=== PATIENT | male | born 1970 | race Hispanic/Latino ===

== ENCOUNTER → 2018-08-02 | Day surgery (SDC) | payer BC ==
[~2018-08-02] MED LIST: FENTANYL CITRATE/PF 100MCG/2 ML INJ ONE; METOPROLOL SUCC50 MG PO; MIDAZOLAM HCL 2 MG/2 ML VIAL ONE; PROPOFOL IV EMULSION 10 MG/ML 20 ML VIAL ONE; ZANTAC 7575 MG PO
[2018-08-02 07:00] VITALS: BP 133/92
--- NOTE | 2018-08-02 07:24 | Operative Report ---
DATE OF PROCEDURE: August 02, 2018 PREOPERATIVE DIAGNOSIS: Gastroesophageal reflux disease. POSTOPERATIVE DIAGNOSES: 1. Hiatal hernia. 2. Moderate distal esophagitis. 3. Gastroesophageal reflux disease. PREOPERATIVE INDICATION: Assess for mucosal disease, assess for hiatal hernia. PROCEDURE: Esophagogastroduodenoscopy with esophageal biopsy (CPT 88298). ANESTHESIA: Moderate sedation. FLUIDS: As per anesthesia. EBL: Minimal. DRAINS: None. COMPLICATIONS: None. SPECIMENS: Distal esophagus. FINDINGS: 1. Small hiatal hernia. 2. Distal esophagitis at the GE junction. GRAFTS: None. PROCEDURAL DETAIL: The patient was brought to the endoscopy suite and was sedated with IV propofol. A preprocedural pause was performed, identifying the patient and the intended procedure. An adult-size endoscope was introduced through the oropharynx and guided to the second portion of the duodenum. No duodenal abnormalities were noted. No gastric abnormalities were noted. Retroflexion was done. The distal esophagus small hiatal hernia was identified. There was also some moderate circumferential distal esophagitis at the GE junction. This was biopsied x2 with the cold forceps. Prior to removing endoscope, the stomach was desufflated. The endoscope was removed. The patient tolerated the procedure well. TYPE OF WOUND: Type 1, clean. Job#: [id number]
== END | disposition home or self-care (01) ==
LOC: OR 05:11
PROVIDERS: ATTEND Surgery
DX: K21.0 Gastro-esophageal reflux disease with esophagitis (principal); K44.9 Diaphragmatic hernia without obstruction or gangrene; I10 Essential (primary) hypertension; E66.01 Morbid (severe) obesity due to excess calories; Z68.41 Body mass index [BMI] 40.0-44.9, adult
CPT/HCPCS: 43239; 88305; J2250; J2704; 43235

== ENCOUNTER 2018-08-23 06:05 | Inpatient (IN) | payer BC ==
[2018-08-19 08:51] LABS: BASOPHILS # (AUTO) 0.1 (0.0-0.1); BASOPHILS % 0.9 % (0.0-1.0); EOSINOPHILS # (AUTO) 0.3 (0.0-0.4); EOSINOPHILS % 6.1 % (0.0-6.0); HEMATOCRIT 42.9 % (38.2-49.6); HEMOGLOBIN 15.1 g/dL (14.0-18.0); LYMPHOCYTES # (AUTO) 2.1 (1.0-3.2); LYMPHOCYTES % 39.2 % (18.0-39.1); MEAN CORPUSCULAR HEMOGLOBIN 31.9 pg (28-32); MEAN CORPUSCULAR HGB CONC 35.2 g/dL (31-35); MEAN CORPUSCULAR VOLUME 90.5 fL (81-99); MONOCYTES # (AUTO) 0.7 (0.2-0.8); MONOCYTES % 12.6 % (4.4-11.3); NEUTROPHILS # (AUTO) 2.2 (2.1-6.9); NEUTROPHILS % 40.8 % (38.7-80.0); PLATELET COUNT 239 x10e3/uL (140-360); RED BLOOD COUNT 4.74 x10e6/uL (4.3-5.7); RED CELL DISTRIBUTION WIDTH 12.5 % (11.7-14.4)
[~2018-08-23] VITALS: Ht 172.7 cm; Wt 123.8 kg
[~2018-08-23 06:05] MED LIST changes: -FENTANYL CITRATE/PF 100MCG/2 ML INJ ONE; -MIDAZOLAM HCL 2 MG/2 ML VIAL ONE; -PROPOFOL IV EMULSION 10 MG/ML 20 ML VIAL ONE
[2018-08-23] MEDS ORDERED: BUPIVACAINE 0.25% 30ML SDV INJ ONE (06:51)
[2018-08-23] MEDS ORDERED: CEFAZOLIN SOD 2 GM/D5W 50ML 50 ML IV ONE (07:02)
[2018-08-23] MEDS ORDERED: SCOPOLAMINE 1.5 MG PATCH ONE (07:12)
[2018-08-23] MEDS ORDERED: SUGAMMADEX SODIUM 200 MG/2 ML VIAL IV ONE (08:39)
[2018-08-23] MEDS ORDERED: FENTANYL CITRATE/PF 100MCG/2 ML INJ ONE ×2 (09:14→17:25)
[2018-08-23] MEDS ORDERED: ONDANSETRON HCL INJ 2MG/ML 2ML 2 MG/ML VIAL ONE ×2 (09:55→17:41)
[2018-08-23] MEDS ORDERED: METOCLOPRAMIDE HCL 10 MG/2ML VIAL ONE (09:55)
[2018-08-23] MEDS ORDERED: MORPHINE SULFATE 2 MG/ML SYR 1ML IV PRN (10:00)
[2018-08-23] MEDS ORDERED: MORPHINE SULFATE INJ 4 MG/ML INJ 1ML ONE (10:07)
--- NOTE | 2018-08-23 10:25 | Operative Report ---
DATE OF PROCEDURE: August 23, 2018 PREOPERATIVE DIAGNOSIS: Hiatal hernia. POSTOPERATIVE DIAGNOSIS: Hiatal hernia. PREOPERATIVE INDICATIONS: Treat and try to prevent complications related to hiatal hernia. PROCEDURE: Laparoscopic hiatal hernia repair (CPT 09421). ANESTHESIA: General. CONVERTER SKIMMER: Caleb Ferguson surgical specialist (needed due to complexity). FLUIDS: 800 mL crystalloid. EBL: 20 mL. DRAINS: None. COMPLICATIONS: None. SPECIMENS: None. GRAFTS: None. FINDINGS: Hiatal hernia present with thickened hernia sac. PROCEDURE IN DETAIL: The patient was brought to the operating room and was intubated under general endotracheal anesthesia. He was sterilely prepped and draped in the usual fashion. A preprocedure pause was performed identifying the patient and the use of perioperative antibiotics, intended procedure, and staff surgeon. A primary 5 mm left subcostal incision was made and a Veress needle was inserted and insufflated the abdomen to a pressure of 15 mmHg. A 0-degree, 5-mm Optiview trocar was placed under direct visualization. No injuries were noted. Four additional trocars were placed in the standard position. A liver retractor was used to expose the hiatus. I began the dissection by incising the gastrohepatic ligament near the pas flaccida, and was able to then mobilize and the reduce the hiatal hernia by dissecting off the hernia sac from the right crux, as well as the left crux of the diaphragm. This dissection continued anteriorly to the arch of the crux. There was a thickened hernia sac, which was carefully reduced. I was able to gain about 2-3 cm of intra-abdominal esophageal length. Once that was completed, I repaired the hiatus with 2-0 Surgidac suture in an interrupted fashion. We verified hemostasis. I then desufflated the abdomen and removed the trocars. Closed the incision sites with 4-0 Monocryl suture in a subcuticular fashion. Quarter percent bupivacaine was used at both the preperitoneal and the incision site. The patient tolerated the procedure well. Type of wound is type 1, clean. Job#: [id number] RI INEZ
--- NOTE | 2018-08-23 10:40 | NUR ---
Received patient via stretcher from PACU. AAOX4 to time, person, place, situation. Respirations even and unlabored. On room air SPO2 96%. Oriented patient to room. Instructed to use call light for assistance. Voiced understanding. Will continue to monitor.
[2018-08-23 10:44] VITALS: BP 131/76
[2018-08-23 10:46] VITALS: BP 131/76
[2018-08-23 10:51] VITALS: BP 131/76
--- NOTE | 2018-08-23 10:57 | History and Physical ---
CHIEF COMPLAINT: "I underwent bariatric surgery today." HISTORY OF PRESENT ILLNESS: This is a 48-year-old man who today underwent successful laparoscopic sleeve gastrectomy and hiatal hernia repair. The patient has a history of extreme obesity with a body mass index of 41, as well as hypertension. The patient states his pain is well controlled. The patient states his primary care physician is Dr. Holguin. REVIEW OF SYSTEMS GENERAL: Weight has been stable. HEENT: No headaches. No vision changes. CARDIOVASCULAR/RESPIRATORY: No chest pain. No shortness of breath or cough. GI: No nausea, vomiting, diarrhea, or constipation. : No Chan catheter in place. NEUROMUSCULAR: No limb weakness or numbness. PAST MEDICAL HISTORY 1. Extreme obesity complicating hypertension. 2. Hypertensive heart disease. 3. GERD. FAMILY HISTORY: Both parents are and both parents had hypertension. Mother had type 2 diabetes mellitus. HOME MEDICATIONS 1. Metoprolol succinate 50 mg daily. 2. Ranitidine 75 mg b.i.d. ALLERGIES: NO KNOWN DRUG ALLERGIES. SURGICAL HISTORY 1. Left arm surgery to repair fracture in 1985. 2. Tonsillectomy. 3. Laparoscopic sleeve gastrectomy and hiatal hernia repair today. 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 No history of tobacco use. He does drink alcohol socially. PHYSICAL EXAMINATION GENERAL: He is somnolent, but arousable. He is currently in the postanesthesia care unit. VITALS: Blood pressure is 140/80, pulse is 56, respiratory rate 18, oxygen saturation 98% on room air, temperature 97.9. Height is 5 feet 8 inches, weight 270 pounds. BMI 41. INTEGUMENT: Skin is warm and dry. No pallor, conjunctivitis or diaphoresis. HEENT: Anicteric sclerae. Moist mucous membranes. NECK: Supple. CARDIOVASCULAR: Distant heart sounds. Bradycardic rate. Regular rhythm. LUNGS: No rales. No rhonchi or wheezes. ABDOMEN: Soft. The laparotomy incisions are covered with Steri-Strips. No bowel sounds are auscultated. EXTREMITIES: No edema or deformity. He is currently wearing sequential compression devices on his bilateral lower leg area. NEUROLOGIC: Intact. IMPRESSION 1. Status post laparoscopic sleeve gastrectomy with hiatal hernia repair. 2. Hypertensive heart disease. 3. Extreme obesity: Body mass index 41 complicating underlying hypertensive heart disease. 4. Gastroesophageal reflux disease. PLAN 1. Advance diet as per bariatric surgery. 2. Intravenous fluids. 3. Start enoxaparin. 4. Mobilize. 5. Encourage incentive spirometry usage to help prevent atelectasis. 6. I spent 40 minutes in the care of this patient. 7. Will follow hepatic transaminases, renal function, as well as hemoglobin and hematocrit. Job#: [id number] RI INEZ
[2018-08-23] MEDS ORDERED: MORPHINE SULFATE 2 MG/ML SYR 1ML IV STA (11:10)
[2018-08-23] MEDS ORDERED: MORPHINE SULFATE INJ 4 MG/ML INJ 1ML IV NR (11:30)
--- NOTE | 2018-08-23 12:26 | NUR ---
walking at this time. No s/s of acute distress noted
[2018-08-23 12:40] VITALS: BP 110/67
--- NOTE | 2018-08-23 12:52 | Operative Report ---
DATE OF PROCEDURE: August 23, 2018 PREOPERATIVE DIAGNOSES 1. Morbid obesity, body mass index of 42. 2. Hypertension. POSTOPERATIVE DIAGNOSES 1. Morbid obesity, body mass index of 42. 2. Hypertension. PREOPERATIVE INDICATIONS: Treat disease, prevent complications related to comorbid conditions of obesity. PROCEDURE PERFORMED: Laparoscopic vertical sleeve gastrectomy. ANESTHESIA: General. FOAM CHARGER: Caleb Ferguson Surgical Retoucher Photoengraving (needed due to complexity of case.) FLUIDS: 800 mL crystalloid. ESTIMATED BLOOD LOSS: 25 mL. DRAINS: None. COMPLICATIONS: None. SPECIMENS: Partial stomach. GRAFTS: None. FINDINGS 1. Hiatal hernia. 2. Negative intraoperative EGD leak test. PROCEDURAL DETAILS: The patient was brought to the operating room and was intubated under general endotracheal anesthesia. Access was gained through a left subcostal incision and a Veress needle. Four additional trocars were placed, and a liver retractor was used to expose the stomach and hiatus. The greater curvature of the stomach was mobilized using the [place] LigaSure device from 4 cm proximal to the pyloric valve to the left emily of the diaphragm. An adult-size endoscope was inserted and used as a bougie along the lesser curvature of the stomach. The greater curvature of the stomach was resected using a 60-mm endo BYRON purple load Covidien stapling device with reinforced seam guard. Once the greater curvature of the stomach was resected, I then conducted intraoperative EGD leak test. No leaks were identified. The specimen was removed through the right periumbilical port site. The port site was closed with 0 Vicryl suture using the Zuhair-Tanya technique. We then verified hemostasis, removed the liver retractor and desufflated the abdomen. We closed all the incision sites with a 4-0 Monocryl suture in a subcuticular fashion, and Dermabond dressings were applied. The patient tolerated the procedure well. We used 0.25% bupivacaine in both the preperitoneal and incision sites. All surgical sponge and instrument counts were correct. Job#: [id number] MARIANA
[2018-08-23] MEDS: SODIUM CHLORIDE 0.9% 1000ML 1,000 ML IV SCH ×2 (14:00→22:05)
[2018-08-23] MEDS: MORPHINE SULFATE INJ 4 MG/ML INJ 1ML IV PRN ×2 (15:30→20:50)
[2018-08-23] MEDS ORDERED: MIDAZOLAM HCL 2 MG/2 ML VIAL ONE (17:25)
[2018-08-23 17:30] VITALS: BP 121/67
[2018-08-23] MEDS ORDERED: PHENYLEPHRINE HCL 1% 10 MG/ML VIAL ONE (17:40)
[2018-08-23] MEDS ORDERED: VASOPRESSIN INJ 20 UNIT/ML VIAL ONE (17:40)
[2018-08-23] MEDS ORDERED: DEXAMETHASONE SOD PHOS INJ 4 MG/ML VIAL ONE (17:41)
[2018-08-23] MEDS ORDERED: SEVOFLURANE INHAL SOLN 250 ML PEN BTL ONE (17:41)
[2018-08-23] MEDS ORDERED: EPHEDRINE SULFATE INJ 50 MG/10 ML SYR ONE (17:41)
[2018-08-23] MEDS ORDERED: GLYCOPYRROLATE INJ 1MG/ 5 ML SYR ONE (17:41)
[2018-08-23] MEDS ORDERED: NEOSTIGMINE 5 MG/5ML SYR ONE (17:41)
[2018-08-23] MEDS ORDERED: SUCCINYLCHOLINE 200 MG/10 ML SYR ONE (17:41)
[2018-08-23] MEDS ORDERED: PROPOFOL IV EMULSION 10 MG/ML 20 ML VIAL ONE (17:41)
[2018-08-23] MEDS ORDERED: ROCURONIUM BROMIDE 10 MG/ML 5ML VIAL ONE (17:41)
[2018-08-23] MEDS ORDERED: ACETAMINOPHEN 1000 MG/100 ML IV ONE (17:41)
[2018-08-23] MEDS ORDERED: LIDOCAINE HCL 2% LOCAL INJ 5 ML SDV VIAL INJ ONE (17:41)
[2018-08-23 20:00] VITALS: BP 127/67
--- NOTE | 2018-08-23 20:09 | NUR ---
PATIENT IS AMBULATING IN THE [place], NO RESPIRATORY DISTRESS OBSERVED. HE C/O PAIN TO THE ABDOMEN WITH PAIN SCORE #4, HE SAYS THAT HE WILL CALL WHEN HE'S READY FOR PAIN MEDICATION.
[2018-08-23] MEDS: ENOXAPARIN SOD INJ 40 MG/0.4 ML SYR SC SCH (20:48)
[2018-08-23] MEDS: ONDANSETRON HCL INJ 2MG/ML 2ML 2 MG/ML VIAL IV PRN (20:50)
[2018-08-23] MEDS ORDERED: ENOXAPARIN SOD INJ 40 MG/0.4 ML SYR SC SCH (21:00)
[2018-08-24] VITALS: BP 145/80
[2018-08-24] MEDS: MORPHINE SULFATE INJ 4 MG/ML INJ 1ML IV PRN ×3 (01:14→10:48)
--- NOTE | 2018-08-24 01:15 | NUR ---
PATIENT C/O PAIN TO THE ABDOMEN WITH PAIN SCORE #7, MEDICATED WITH MORPHINE ORDERED. PATIENT WANTED TO AMBULATE AFTER THE MEDICATION ADMINISTRATION, HE WAS EDUCATION THAT IT WILL NOT BE SAFE DUE TO SIDE EFFECT FROM THE MEDICATION. CALL LIGHT WITHIN EASY REACH, INSTRUCTED TO CALL FOR ASSISTANCE UPON GETTING OUT OF THE BED.
--- NOTE | 2018-08-24 02:16 | NUR ---
WALKING ROUNDS MADE; PATIENT ASLEEP, HE'S EASY TO AROUSE, NO RESPIRATORY DISTRESS OBSERVED. HE DENIES ABDOMINAL PAIN, CALL LIGHT WITHIN EASY REACH.
[2018-08-24 04:00] VITALS: BP 140/84
[2018-08-24] MEDS: ONDANSETRON HCL INJ 2MG/ML 2ML 2 MG/ML VIAL IV PRN ×2 (05:13→10:48)
--- NOTE | 2018-08-24 05:15 | NUR ---
PATIENT AMBULATING IN THE [place], HE WAS GIVEN ZOFRAN FOR NAUSEA BY A STAFF NURSE. PATIENT EDUCATED TO USE THE INCENTIVE SPIROMETRY WHEN HE GETS BACK TO THE ROOM BECAUSE OF LOW GRADE TEMPERATURE.
[2018-08-24] MEDS: SODIUM CHLORIDE 0.9% 1000ML 1,000 ML IV SCH (06:00)
--- NOTE | 2018-08-24 06:02 | NUR ---
PATIENT USED THE INCENTIVE SPIROMETRY SEVERAL TIMES, HE C/O PAIN TO THE RIGHT SIDE OF THE ABDOMEN WITH PAIN SCORE #6. MORPHINE ADMINISTERED ORDERED, CALL LIGHT WITHIN EASY REACH, INSTRUCTED TO CALL FOR ASSISTANCE NEEDED.
--- NOTE | 2018-08-24 07:05 | NUR ---
Received patient mid fowlers position, side rails upx2, call light within reach. Resting with eyes closed. Arousable to verbal stimuli. Respirations even and unlabored. Will continue to monitor.
--- NOTE | 2018-08-24 07:26 | NUR ---
Surgery progress note S: No major complaints; some right sided incisional pain as expected O: VSS, afebrile Gen- no acute distress Abd- soft, incisions clean/dry/intact A/P: POD 1, s/p Lap hiatal hernia repair and sleeve gastrectomy -Clears, ambulate, IS, OOB to chair -DC home -f/u with me in 1 week -Will go home and start a full liquid diet
[2018-08-24 08:00] VITALS: BP 153/93
[2018-08-24] MEDS: ENOXAPARIN SOD INJ 40 MG/0.4 ML SYR SC SCH (08:32)
[2018-08-24 08:49] VITALS: BP 153/93
[2018-08-24] MEDS ORDERED: METOPROLOL SUCCINATE 50 MG TAB XL PO SCH (09:00)
[2018-08-24 09:20] LABS: BASOPHILS # (AUTO) 0.1 (0.0-0.1); BASOPHILS % 0.6 % (0.0-1.0); EOSINOPHILS % 0.2 % (0.0-6.0); HEMATOCRIT 36.9 % (38.2-49.6); LYMPHOCYTES # (AUTO) 1.9 (1.0-3.2); LYMPHOCYTES % 23.4 % (18.0-39.1); MEAN CORPUSCULAR HGB CONC 35.2 g/dL (31-35); MEAN CORPUSCULAR VOLUME 90.9 fL (81-99); MONOCYTES # (AUTO) 0.9 (0.2-0.8); MONOCYTES % 10.3 % (4.4-11.3); NEUTROPHILS # (AUTO) 5.4 (2.1-6.9); NEUTROPHILS % 65.3 % (38.7-80.0); PLATELET COUNT 208 x10e3/uL (140-360); RED BLOOD COUNT 4.06 x10e6/uL (4.3-5.7); RED CELL DISTRIBUTION WIDTH 12.6 % (11.7-14.4)
[2018-08-24 09:51] LABS: ALANINE AMINOTRANSFERASE 36 IU/L (0-55); ALBUMIN 3.5 g/dL (3.5-5.0); ALBUMIN/GLOBULIN RATIO 1.5 (0.8-2.0); ALKALINE PHOSPHATASE 36 IU/L (40-150); ANION GAP 12.6 mmol/L (8-16); BLOOD UREA NITROGEN 15 mg/dL (7-26); BUN/CREATININE RATIO 15 (6-25); CALCIUM 8.1 mg/dL (8.4-10.2); CARBON DIOXIDE 21 mmol/L (22-29); CHLORIDE 106 mmol/L (98-107); CREATININE, SERUM 0.97 mg/dL (0.72-1.25); EST GLOMERULAR FILTRATION RATE > 60 ML/MIN (60-); GLUCOSE 81 mg/dL (74-118); MAGNESIUM 2.1 MG/DL (1.3-2.1); PHOSPHORUS 2.8 MG/DL (2.3-4.7); POTASSIUM 3.6 mmol/L (3.5-5.1); SODIUM 136 mmol/L (136-145)
--- NOTE | 2018-08-24 10:50 | NUR ---
aware of Lab results. See orders
[2018-08-24] MEDS ORDERED: TYLENOL WITH C1 EACH PO (11:32)
--- NOTE | 2018-08-24 12:45 | NUR ---
Nutrition Screen Note RD Recommendation for Physician: -Advance to bariatric full liquid diet as tolerated -RD provided diet education on 08/24. Plan of Care: RD following, monitoring for tolerance and adequacy, diet education Nutrition reason for involvement: MD Consult bariatric diet progression Primary Diagnose(s): s/p Lap hiatal hernia repair and sleeve gastrectomy PMH: GERD, obesity, HTN Ht: 68in Wt: 273lb BMI: 41.5kg/m2 IBW: 154lb RD Assessment: (08/24/18) Chart reviewed. Labs and meds reviewed. 48yo M, who is s/p Lap hiatal hernia repair and sleeve gastrectomy on 08/23. POD 1. Visited pt in the room. Pt reported tolerating clear liquid diet. No GI complains noted. No chewing or swallowing difficulty. RD provided bariatric diet education (20minutes) as consulted. Will continue to monitor and follow. Current Diet: bariatric clear liquid Malnutrition Evaluation (08/24/18) The patient does not meet criteria for a specified degree of malnutrition at this time. Will re-evaluate at follow-up as appropriate. Diet Education Needs Assessment: Diet education indicated, pt is agreeable with plan. Learner(s): pt Time spent: 20 minutes Barriers: No barriers identified. Cultural/Language Modifications: No cultural/language modifications noted. Pt speaks Faroese. Readiness: Pt eager to learn. Method: Handouts, explanation Topics: Bariatric diet progression (clear full - pureed) Understanding/Compliance: Expect good understanding/compliance from pt. Will benefit from reinforcement. All questions have been answered. Nutrition Care Level: low Signed: Shereen Melgoza, MS, RD, LD
[2018-08-24 13:09] VITALS: BP 152/92
--- NOTE | 2018-08-24 16:58 | NUR ---
Right hand IV discontinued. No signs of infiltration noted. 2x2 gauze and tape placed. Accompanied by PCT to personal car. Accompanied by family. Refuses wheelchair. AAOX4 to time, person,place, situation. Respirations even and unlabored. RX, discharge instructions and all personal belongings taken with patient.
--- NOTE | 2018-08-25 08:25 | NUR ---
Dictated DC summary: [id number]
--- NOTE | 2018-08-25 08:44 | Discharge Summary ---
ADMITTING DIAGNOSES 1. Extreme obesity, body mass index 41, complicating underlying hypertensive heart disease. 2. Gastroesophageal reflux disease. 3. Hiatal hernia. 4. Hypertensive heart disease. DISCHARGE DIAGNOSES 1. Laparoscopic vertical sleeve gastrectomy. 2. Gastroesophageal reflux disease. 3. Hypertensive heart disease. 4. Extreme obesity, body mass index 41, complicating underlying hypertension. HOSPITAL COURSE: This is a 48-year-old man who was initially admitted to [facility] with a diagnosis of extreme obesity, BMI 41, complicating underlying hypertension. He also has a history of hypertensive heart disease as well as GERD. It was felt the patient's GERD was worsened by his underlying hiatal hernia. It turns out during his hospitalization the patient was seen by his general surgeon, namely Dr. Rell Richardson, who performed successful laparoscopic hiatal hernia repair as well as laparoscopic vertical sleeve gastrectomy. The patient tolerated these surgical procedures well. His brief hospitalization was unremarkable. His condition on discharge was stable. On the day of discharge, hemoglobin was 13 g/dL. Also on the day of discharge, the patient's BUN and creatinine were 15 and 0.97 respectively. Potassium was 3.6. DISCHARGE MEDICATIONS 1. Tylenol No. 3 one every 6 hours p.r.n. pain, 25 prescribed. 2. Metoprolol succinate 50 mg daily. 3. Ranitidine 75 mg b.i.d. FOLLOWUP INSTRUCTIONS: The patient was instructed to follow up with Dr. Rell Richardson in [address] Rashad Holguin within 2 weeks. ALEXANDRIA LAWRENCE MD Job#: [id number] cc: MD JEIMY PALAFOX DO
== END 2018-08-24 13:10 | disposition home or self-care (01) | DRG 621 ==
LOC: OR 06:05 → PACU V 10:15 → MED/SURG 10:40
PROVIDERS: ADMIT Internal Medicine; ATTEND Internal Medicine
PROC: 0BQT4ZZ Repair Diaphragm, Percutaneous Endoscopic Approach (ICD-10-PCS; principal; 2018-08-23 07:30)
PROC: 0DB64Z3 Excision of Stomach, Percutaneous Endoscopic Approach, Vertical (ICD-10-PCS; 2018-08-23 07:30)
DX: E66.01 Morbid (severe) obesity due to excess calories (principal); I11.9 Hypertensive heart disease without heart failure; K44.9 Diaphragmatic hernia without obstruction or gangrene; Z68.41 Body mass index [BMI] 40.0-44.9, adult; K21.0 Gastro-esophageal reflux disease with esophagitis; I10 Essential (primary) hypertension
CPT/HCPCS: 36415; 80053; 83735; 84100; 85025; 96372; 96376; J0690; J1100; J1650; J2001; J2250; J2270; J2370; J2405; J2765; J7030